=== PATIENT | female | born 1970 | race Caucasian/White ===

== ENCOUNTER → 2022-09-12 | Outpatient (CLI) | payer OTHER ==
--- NOTE | 2022-09-12 15:45 | XR ---
EXAMINATION TYPE: XR lumbar spine 2 or 3V DATE OF EXAM: 09/12/2022 Comparison: None Clinical History: 52-year-old female R10.813, K40.30 Findings: 5 lumbar type vertebral bodies. Moderate to severe disc/endplate degenerative change L2-L3. Hypertrop hic facet arthropathy mid to lower lumbar spine. Degenerative grade 1 retrolisthesis L2-L3 and L3-L4. Remaining alignment is maintained. Impression: 1. Hypertrophic facet arthropathy with degenerative grade 1 retrolisthesis L2-L3 and L3-L4. 2. Moderate to severe degenerative disc disease L2-L3. 3. No vertebral compression collapse.
== END | disposition home or self-care (01) ==
LOC: RADXRMAIN 13:33
PROVIDERS: ATTEND Emergency Medicine
DX: M51.36 Other intervertebral disc degeneration, lumbar region (principal); S39.012A Strain of muscle, fascia and tendon of lower back, initial encounter; M47.816 Spondylosis without myelopathy or radiculopathy, lumbar region; M43.16 Spondylolisthesis, lumbar region; X58.XXXA Exposure to other specified factors, initial encounter
CPT/HCPCS: 72100

== ENCOUNTER → 2023-01-28 | Outpatient (CLI) | payer OTHER ==
--- NOTE | 2023-01-30 10:07 | MR ---
EXAMINATION TYPE: MR cervical spine wo con DATE OF EXAM: 01/28/2023 COMPARISON: None HISTORY: Neck pain into right shoulder and arm, Headaches CONTRAST: Performed utilizing 0 mL intravenous Gadavist gadolinium contrast. TECHNIQUE: Multiplanar multiecho imaging on a 3.0 Jessica magnet is performed through the cervical spin e. FINDINGS: The craniovertebral junction is normal. Vertebral body alignment is normal. C7-T1: No focal disc herniation or significant disc bulge is evident. No spinal canal stenosis or n eural foraminal stenosis is present. C6-7: Mild broad-based disc bulge is present with anterior thecal sac flattening. No AP spinal stenos is is present. Neural foramen are patent.. C5-6: Broad-based disc bulging is present with moderate anterior thecal sac compression. The sagittal plane appears to have some subligamentous disc extension. This is in close approximation with the sp inal cord greater on the left. No cord deformity is identified. Moderate bilateral femoral narrowing is present. C4-5: Broad-based disc bulge is present greater to the left paracentral region. This may has some sub ligamentous disc extension. No cord contact is evident. No spinal canal stenosis is present. Uncovert ebral joint hypertrophy is contributing to moderate to severe left foraminal stenosis. Correlate with radicular symptoms. C3-4: Small broad-based disc bulge is present which may have some mild subligamentous disc extension on the sagittal plane images. No cord contact or spinal canal stenosis is present.. C2-3: No focal disc herniation or significant disc bulge is evident. No spinal canal stenosis or teresa ral foraminal stenosis is present. IMPRESSION: 1. Disc bulging with subligamentous disc extension C3-4, C4-5 and C5-6 with mild to moderate anterior thecal sac compression. No cord contact is evident. 2. Foraminal stenosis C4-5 appears severe on the left correlate with radicular symptoms. More moderat e bilateral foraminal stenosis is present C5-6
== END | disposition home or self-care (01) ==
LOC: RADMRIMAIN 19:22
PROVIDERS: ATTEND Orthopaedic Surgery Orthopaedic Surgery of the Spine
DX: M99.71 Connective tissue and disc stenosis of intervertebral foramina of cervical region (principal); M50.122 Cervical disc disorder at C5-C6 level with radiculopathy; M50.123 Cervical disc disorder at C6-C7 level with radiculopathy; M79.12 Myalgia of auxiliary muscles, head and neck; M25.78 Osteophyte, vertebrae; R53.1 Weakness
CPT/HCPCS: 72141

== ENCOUNTER → 2023-08-29 | Outpatient (CLI) | payer OTHER ==
--- NOTE | 2023-08-29 09:10 | XR ---
EXAMINATION TYPE: XR chest 2V DATE OF EXAM: 08/29/2023 COMPARISON: NONE HISTORY: Preop chest TECHNIQUE: Frontal and lateral views of the chest are obtained. FINDINGS: There is no focal air space opacity, pleural effusion, or pneumothorax seen. The cardiac silhouette size is within normal limits. The osseous structures are intact. IMPRESSION: No acute cardiopulmonary process.
[2023-08-29 10:39] LABS: INR 0.9 (<1.2); Partial Thromboplastin Time 24.8 sec (22.0-30.0)
[2023-08-29 13:02] LABS: HCT 45.5 % (37.2-46.3); MCHC 35.2 g/dL (32.0-37.0); Mean Platelet Volume 9.5 FL (9.5-12.2); NRBC Per 100 WBC 0 X 10*3/uL (0.00-0.01); Platelet Count 275 X 10*3/uL (140-440); RDW 12.9 % (11.5-14.5); WBC 4.28 X 10*3/uL (4.50-10.00)
[2023-08-29 14:20] LABS: Appearance,Urine Clear (Clear); Bilirubin,Urine Negative (Negative); Blood,Urine Negative (Negative); Color,Urine Yellow (Yellow); Ketones,Urine Negative (Negative); Nitrite,Urine Negative (Negative); PH, Urine 6.5; Specific Gravity,Urine 1.005 (1.001-1.030); Urobilinogen,Urine 0.2 E.U./DL
[2023-08-29 15:19] LABS: ALT 38 U/L (8-44); AST 40 U/L (13-35); Albumin/Globulin Ratio 2.27 Ratio (1.60-3.17); Alkaline Phosphatase 68 U/L (41-126); BUN/Creat Ratio 9.33 Ratio (12.00-20.00); Blood Urea Nitrogen 5.6 mg/dL (9.0-27.0); Calcium 10.1 mg/dL (8.7-10.3); Carbon Dioxide 27.9 mmol/L (21.6-31.8); Chloride 90 mmol/L (96-109); Globulin 2.2 g/dL (1.6-3.3); Glucose 116 mg/dL (70-110); Potassium 4.5 mmol/L (3.5-5.5); Sodium 130 mmol/L (135-145); Total Bilirubin 0.9 mg/dL (0.3-1.2); Total Protein 7.2 g/dL (6.2-8.2)
== END | disposition home or self-care (01) ==
LOC: LABWHC1 08:45
PROVIDERS: ATTEND Orthopaedic Surgery Orthopaedic Surgery of the Spine
DX: M79.12 Myalgia of auxiliary muscles, head and neck (principal); M25.78 Osteophyte, vertebrae; M50.322 Other cervical disc degeneration at C5-C6 level; M50.323 Other cervical disc degeneration at C6-C7 level; M48.02 Spinal stenosis, cervical region; M50.122 Cervical disc disorder at C5-C6 level with radiculopathy; M50.123 Cervical disc disorder at C6-C7 level with radiculopathy; M50.221 Other cervical disc displacement at C4-C5 level; M47.812 Spondylosis without myelopathy or radiculopathy, cervical region; R53.1 Weakness; R94.31 Abnormal electrocardiogram [ECG] [EKG]
CPT/HCPCS: 36415; 71046; 80053; 81003; 85027; 85610; 85730; 93005

== ENCOUNTER 2024-05-19 20:27 | Inpatient (IN) | payer BC, OTHER ==
--- NOTE | 2024-05-19 21:03 | ED ---
Abdominal Pain HPI - General Chief Complaint: Abdominal Pain Stated Complaint: abd pain Time Seen by Provider: 05/19/24 20:41 Source: patient, RN notes reviewed Mode of arrival: ambulatory Limitations: no limitations - History of Present Illness Initial Comments: This is a 54-year-old female who presents to the emergency department for abdominal pain. States that around 1 PM she developed pain in the right upper quadrant radiating around to the right flank region. Pain has since been constant. She has some nausea but no vomiting. Denies any diarrhea or constipation. Denies any history of kidney stones or similar symptoms in the past. MD Complaint: abdominal pain, flank pain - Related Data Previous Rx's Medication Instructions Recorded Cephalexin [Keflex] 500 mg PO Q6HR 3 Days #12 cap 05/21/24 Thiamine [Vitamin B-1] 100 mg PO DAILY 30 Days #30 tab 05/21/24 Allergies Allergy/AdvReac Type Severity Reaction Status Date / Time Penicillins Allergy Anaphylaxis Verified 05/20/24 06:59 clarithromycin [From Biaxin] AdvReac Nausea & Verified 05/20/24 06:59 Vomiting & Diarrhea Review of Systems ROS Statement: Those systems with pertinent positive or pertinent negative responses have been documented in the HPI. ROS Other: All systems not noted in ROS Statement are negative. General Exam Limitations: no limitations General appearance: alert, in distress Head exam: Present: atraumatic, normocephalic, normal inspection Respiratory exam: Present: normal lung sounds bilaterally. Absent: respiratory distress, wheezes, rales, rhonchi, stridor Cardiovascular Exam: Present: regular rate, normal rhythm GI/Abdominal exam: Present: soft, tenderness (RUQ), normal bowel sounds. Absent: distended Back exam: Present: CVA tenderness (R). Absent: CVA tenderness (L) Neurological exam: Present: alert, oriented X3, CN II-XII intact Psychiatric exam: Present: normal affect, normal mood Skin exam: Present: warm, dry, intact, normal color. Absent: rash Course Vital Signs 05/19/24 05/19/24 05/19/24 20:39 22:53 23:44 Temperature 98.8 F 98.6 F Pulse Rate 102 H 97 90 Respiratory 18 20 16 Rate Blood Pressure 155/85 116/75 139/76 O2 Sat by Pulse 93 L 91 L 92 L Oximetry 0205/20/24 05/20/24 23:48 02:00 03:00 Temperature 98.1 F Pulse Rate 77 75 Respiratory 16 16 Rate Blood Pressure 114/63 127/73 O2 Sat by Pulse 95 94 L Oximetry 05/20/24 05/20/24 05/20/24 04:00 05:00 06:00 Temperature Pulse Rate 76 76 73 Respiratory 16 16 17 Rate Blood Pressure 113/67 116/67 115/65 O2 Sat by Pulse 93 L 95 95 Oximetry 05/20/24 05/20/24 05/20/24 07:31 09:38 17:00 Temperature 98.2 F Pulse Rate 80 80 Respiratory 18 18 Rate Blood Pressure 129/89 125/70 O2 Sat by Pulse 98 99 Oximetry 05/20/24 19:31 Temperature Pulse Rate 89 Respiratory 18 Rate Blood Pressure 130/76 O2 Sat by Pulse 97 Oximetry Medical Decision Making - Medical Decision Making This is a 54 year old female who presents to the emergency department for abdominal pain. Was pt. sent in by a medical professional or institution? @ -No Did you speak to anyone other than the patient for history? @ -No Did you review nursing and triage notes? @ -Yes, and I agree, it is accurate with regards to the patient's symptoms. Were old charts reviewed? @ -No Differential Diagnosis? @ -Differential Abdominal Pain Women: Appendicitis, Cholecystitis, diverticulosis, ischemic bowel, pancreatitis, hepatitis, UTI, gastroenteritis, AAA, incarcerated hernia, bowel obstruction, constipation, inflammatory bowel, hepatitis, peptic ulcer disease, splenic infarction, perforated viscus, vulvitis, ovarian torsion, PID, kidney stone, placenta abruption, this is not meant to be an all-inclusive list EKG interpreted by me (3pts min.)? @ -EKG interpreted by me demonstrating the following: Sinus rhythm. Ventricular rate 93 bpm, MN interval 160 ms, QRS duration 84 ms, QTc 424 ms. X-rays interpreted by me (1pt min.)? @ -Chest x-ray obtained, my interpretation identifies no localized consolidations or infiltrates. CT interpreted by me (1pt min.)? @ -CT scan of the abdomen and pelvis obtained. My interpretation identifies no bowel wall thickening or free air. U/S interpreted by me (1pt. min.)? @ -Not obtained What testing was considered but not performed? (CT, X-rays, U/S, labs)? Why? @ -None What meds were considered but not given? Why? @ -None Did you discuss the management of the patient with other professionals? @ -Yes, Dr. Mcqueen, who accepts the patient for admission Did you reconcile home meds? @ -No Was smoking cessation discussed for >3mins.? @ -No Was critical care preformed (if so, how long)? @ -No Were there social determinants of health that impacted care today? How? (H omelessness, low income, unemployed, alcoholism, drug addiction, transportation, low edu. Level, literacy, decrease access to med. care, half-way, rehab)? @ -No Was there de-escalation of care discussed even if they declined? (Discuss DNR or withdrawal of care, Hospice)? @ -No What co-morbidities impacted this encounter? (DM, HTN, Smoking, COPD, CAD, Cancer, CVA, Hep., AIDS, mental health diagnosis, sleep apnea, morbid obesity)? @ -None Was patient admitted / discharged? @ -Admitted. Lab work demonstrates mild leukocytosis with a white blood cell count of 11.2. Patient fairly hyponatremic with a sodium of 122. Urinalysis consistent with infection. Urine sent for culture. Blood culture obtained as well and patient was given [address] scan of the abdomen and pelvis demonstrates groundglass opacities in the right middle lobe with tree-in-bud opacities in the medial left lung base. They advised correlation for acute infectious process. She does admit to some coughing and shortness of breath over the last couple of weeks. Denies any chest pain. Chest x-ray subsequently obtained. No acute process was identified on the chest x-ray. However, the CT scan is much more sensitive and she may also have a respiratory infection occurring, which could also potentially lead to upper abdominal pain. Patient admitted to medicine for further management given the hyponatremia and likely pyelonephritis and lung opacities. Consult placed for nephrology. Will defer further testing/imaging of the lungs to admitting team. Case discussed with ED attending Dr. Braswell. Undiagnosed new problem with uncertain prognosis? @ -None Drug Therapy requiring intensive monitoring for toxicity (Heparin, Nitro, Insulin, Cardizem)? @ -None Were any procedures done? @ -None Diagnosis/symptom? @ -Hyponatremia, pyelonephritis, lung opacities Acute, or Chronic, or Acute on Chronic? @ -Acute Uncomplicated (without systemic symptoms) or Complicated (systemic symptoms)? @ -Complicated Side effects of treatment? @ -None Exacerbation, Progression, or Severe Exacerbation] @ -Not applicable Poses a threat to life or bodily function? @ -Yes, worsening hyponatremia can be life-threatening - Lab Data Result diagrams: 05/21/24 03:03 05/21/24 03:03 Lab Results 05/19/24 05/19/24 05/19/24 Range/Units 21:12 21:12 21:12 WBC 11.2 H (3.8-10.6) k/uL RBC 4.41 (3.80-5.40) m/uL Hgb 13.9 (11.4-16.0) gm/dL Hct 40.8 (34.0-46.0) % MCV 92.5 (80.0-100.0) fL MCH 31.4 (25.0-35.0) pg MCHC 34.0 (31.0-37.0) g/dL RDW 12.9 (11.5-15.5) % Plt Count 360 (150-450) k/uL MPV 6.9 Neutrophils % 85 % Lymphocytes % 8 % Monocytes % 4 % Eosinophils % 1 % Basophils % 0 % Neutrophils # 9.5 H (1.3-7.7) k/uL Lymphocytes # 0.9 L (1.0-4.8) k/uL Monocytes # 0.5 (0-1.0) k/uL Eosinophils # 0.1 (0-0.7) k/uL Basophils # 0.0 (0-0.2) k/uL Sodium 122 L (137-145) mmol/L Potassium 3.8 (3.5-5.1) mmol/L Chloride 86 L (98-107) mmol/L Carbon Dioxide 30 (22-30) mmol/L Anion Gap 6 mmol/L BUN 3 L (7-17) mg/dL Creatinine 0.47 L (0.52-1.04) mg/dL Est GFR (CKD-EPI)AfAm >90 (>60 ml/min/1.73 sqM) Est GFR (CKD-EPI)NonAf >90 (>60 ml/min/1.73 sqM) Glucose 125 H (74-99) mg/dL Osmolality (275-295) mOsm/kg Plasma Lactic Acid Mickey 0.9 (0.7-2.0) mmol/L Calcium 8.9 (8.4-10.2) mg/dL Phosphorus (2.5-4.5) mg/dL Magnesium (1.6-2.3) mg/dL Total Bilirubin 0.9 (0.2-1.3) mg/dL AST 25 (14-36) U/L ALT 21 (4-34) U/L Alkaline Phosphatase 82 (38-126) U/L Total Protein 6.3 (6.3-8.2) g/dL Albumin 3.9 (3.5-5.0) g/dL Amylase 33 (30-110) U/L Lipase 87 (23-300) U/L Urine Color Urine Appearance (Clear) Urine pH (5.0-8.0) Ur Specific [place] (1.001-1.035) Urine Protein (Negative) Urine Glucose (UA) (Negative) Urine Ketones (Negative) Urine Blood (Negative) Urine Nitrite (Negative) Urine Bilirubin (Negative) Urine Urobilinogen (<2.0) mg/dL Ur Leukocyte Esterase (Negative) Urine RBC (0-5) /hpf Urine WBC (0-5) /hpf Ur Squamous Epith Cells (0-4) /hpf Urine Bacteria (None) /hpf Urine Mucus (None) /hpf Urine Osmolality (400-1100) mOsm/kg Influenza Type A (PCR) (Not Detectd) Influenza Type B (PCR) (Not Detectd) RSV (PCR) (Not Detectd) SARS-CoV-2 (PCR) (Not Detectd) 05/19/24 05/19/24 05/19/24 Range/Units 21:12 22:09 22:09 WBC (3.8-10.6) k/uL RBC (3.80-5.40) m/uL Hgb (11.4-16.0) gm/dL Hct (34.0-46.0) % MCV (80.0-100.0) fL MCH (25.0-35.0) pg MCHC (31.0-37.0) g/dL RDW (11.5-15.5) % Plt Count (150-450) k/uL MPV Neutrophils % % Lymphocytes % % Monocytes % % Eosinophils % % Basophils % % Neutrophils # (1.3-7.7) k/uL Lymphocytes # (1.0-4.8) k/uL Monocytes # (0-1.0) k/uL Eosinophils # (0-0.7) k/uL Basophils # (0-0.2) k/uL Sodium (137-145) mmol/L Potassium (3.5-5.1) mmol/L Chloride (98-107) mmol/L Carbon Dioxide (22-30) mmol/L Anion Gap mmol/L BUN (7-17) mg/dL Creatinine (0.52-1.04) mg/dL Est GFR (CKD-EPI)AfAm (>60 ml/min/1.73 sqM) Est GFR (CKD-EPI)NonAf (>60 ml/min/1.73 sqM) Glucose (74-99) mg/dL Osmolality 262 L (275-295) mOsm/kg Plasma Lactic Acid Mickey (0.7-2.0) mmol/L Calcium (8.4-10.2) mg/dL Phosphorus 3.6 (2.5-4.5) mg/dL Magnesium 1.8 (1.6-2.3) mg/dL Total Bilirubin (0.2-1.3) mg/dL AST (14-36) U/L ALT (4-34) U/L Alkaline Phosphatase (38-126) U/L Total Protein (6.3-8.2) g/dL Albumin (3.5-5.0) g/dL Amylase (30-110) U/L Lipase (23-300) U/L Urine Color Colorless Urine Appearance Cloudy H (Clear) Urine pH 6.0 (5.0-8.0) Ur Specific [place] 1.005 (1.001-1.035) Urine Protein Negative (Negative) Urine Glucose (UA) Negative (Negative) Urine Ketones 1+ H (Negative) Urine Blood Negative (Negative) Urine Nitrite Positive H (Negative) Urine Bilirubin Negative (Negative) Urine Urobilinogen <2.0 (<2.0) mg/dL Ur Leukocyte Esterase Moderate H (Negative) Urine RBC 1 (0-5) /hpf Urine WBC 34 H (0-5) /hpf Ur Squamous Epith Cells 1 (0-4) /hpf Urine Bacteria Many H (None) /hpf Urine Mucus Rare H (None) /hpf Urine Osmolality 217 L (400-1100) mOsm/kg Influenza Type A (PCR) (Not Detectd) Influenza Type B (PCR) (Not Detectd) RSV (PCR) (Not Detectd) SARS-CoV-2 (PCR) (Not Detectd) 05/19/24 Range/Units 22:48 WBC (3.8-10.6) k/uL RBC (3.80-5.40) m/uL Hgb (11.4-16.0) gm/dL Hct (34.0-46.0) % MCV (80.0-100.0) fL MCH (25.0-35.0) pg MCHC (31.0-37.0) g/dL RDW (11.5-15.5) % Plt Count (150-450) k/uL MPV Neutrophils % % Lymphocytes % % Monocytes % % Eosinophils % % Basophils % % Neutrophils # (1.3-7.7) k/uL Lymphocytes # (1.0-4.8) k/uL Monocytes # (0-1.0) k/uL Eosinophils # (0-0.7) k/uL Basophils # (0-0.2) k/uL Sodium (137-145) mmol/L Potassium (3.5-5.1) mmol/L Chloride (98-107) mmol/L Carbon Dioxide (22-30) mmol/L Anion Gap mmol/L BUN (7-17) mg/dL Creatinine (0.52-1.04) mg/dL Est GFR (CKD-EPI)AfAm (>60 ml/min/1.73 sqM) Est GFR (CKD-EPI)NonAf (>60 ml/min/1.73 sqM) Glucose (74-99) mg/dL Osmolality (275-295) mOsm/kg Plasma Lactic Acid Mickey (0.7-2.0) mmol/L Calcium (8.4-10.2) mg/dL Phosphorus (2.5-4.5) mg/dL Magnesium (1.6-2.3) mg/dL Total Bilirubin (0.2-1.3) mg/dL AST (14-36) U/L ALT (4-34) U/L Alkaline Phosphatase (38-126) U/L Total Protein (6.3-8.2) g/dL Albumin (3.5-5.0) g/dL Amylase (30-110) U/L Lipase (23-300) U/L Urine Color Urine Appearance (Clear) Urine pH (5.0-8.0) Ur Specific [place] (1.001-1.035) Urine Protein (Negative) Urine Glucose (UA) (Negative) Urine Ketones (Negative) Urine Blood (Negative) Urine Nitrite (Negative) Urine Bilirubin (Negative) Urine Urobilinogen (<2.0) mg/dL Ur Leukocyte Esterase (Negative) Urine RBC (0-5) /hpf Urine WBC (0-5) /hpf Ur Squamous Epith Cells (0-4) /hpf Urine Bacteria (None) /hpf Urine Mucus (None) /hpf Urine Osmolality (400-1100) mOsm/kg Influenza Type A (PCR) Not Detected (Not Detectd) Influenza Type B (PCR) Not Detected (Not Detectd) RSV (PCR) Not Detected (Not Detectd) SARS-CoV-2 (PCR) Not Detected (Not Detectd) - Radiology Data Radiology results: report reviewed, image reviewed Disposition Clinical Impression: Hyponatremia, Pyelonephritis, Opacity of lung on imaging study Disposition: ADMITTED IP TO THIS [facility] Condition: Stable
[2024-05-19] MEDS: SODIUM CHLORIDE 0.9% 1,000 ML IV STA ×2 (21:16→23:46)
[2024-05-19] MEDS: KETOROLAC 15 MG/ML 1 ML VIAL IVP STA (21:18)
[2024-05-19] MEDS: ONDANSETRON 4 MG/2 ML VIAL IVP STA (21:20)
[2024-05-19] MEDS: MORPHINE SULFATE 4 MG/ML SYRINGE IVP STA (21:21)
[2024-05-19 21:27] LABS: Basophils % (A) 0 %; Eosinophils # (A) 0.1 k/uL (0-0.7); Eosinophils % (A) 1 %; HCT 40.8 % (34.0-46.0); HGB 13.9 gm/dL (11.4-16.0); Lymphocytes # (A) 0.9 k/uL (1.0-4.8); Lymphocytes % (A) 8 %; MCH 31.4 pg (25.0-35.0); MCV 92.5 fL (80.0-100.0); Mean Platelet Volume 6.9; Monocytes # (A) 0.5 k/uL (0-1.0); Monocytes % (A) 4 %; Neutrophils # (A) 9.5 k/uL (1.3-7.7); Neutrophils % (A) 85 %; Platelet Count 360 k/uL (150-450); RBC 4.41 m/uL (3.80-5.40); RDW 12.9 % (11.5-15.5); WBC 11.2 k/uL (3.8-10.6)
[2024-05-19 21:41] LABS: ALT 21 U/L (4-34); AST 25 U/L (14-36); African American GFR (CKD) >90 (>60 ml/min/1.73 sqM); Albumin 3.9 g/dL (3.5-5.0); Alkaline Phosphatase 82 U/L (38-126); Amylase 33 U/L (30-110); Anion Gap 6 mmol/L; Blood Urea Nitrogen 3 mg/dL (7-17); Calcium 8.9 mg/dL (8.4-10.2); Carbon Dioxide 30 mmol/L (22-30); Chloride 86 mmol/L (98-107); Glucose 125 mg/dL (74-99); Lipase 87 U/L (23-300); Non-African American GFR(CKD) >90 (>60 ml/min/1.73 sqM); Potassium 3.8 mmol/L (3.5-5.1); Sodium 122 mmol/L (137-145); Total Bilirubin 0.9 mg/dL (0.2-1.3); Total Protein 6.3 g/dL (6.3-8.2)
[2024-05-19 22:16] LABS: Appearance,Urine Cloudy (Clear); Bacteria,Urine Many /hpf; Bilirubin,Urine Negative (Negative); Blood,Urine Negative (Negative); Color,Urine Colorless; Glucose,Urine (UA) Negative (Negative); Ketones,Urine 1+ (Negative); Leukocyte Esterase,Urine Moderate (Negative); Mucus,Urine Rare /hpf; Nitrite,Urine Positive (Negative); Protein,Urine Negative (Negative); RBC,Urine 1 /hpf (0-5); Specific Gravity,Urine 1.005 (1.001-1.035); Squamous Epithelial Cell,Urine 1 /hpf (0-4); Urobilinogen,Urine <2.0 mg/dL (<2.0); WBC,Urine 34 /hpf (0-5)
--- NOTE | 2024-05-19 22:29 | CT ---
EXAMINATION TYPE: CT abdomen pelvis wo con DATE OF EXAM: 05/19/2024 HISTORY: Pt states that she has constant pain under her right ribs that radiates to her right side to her back. Pt states that this started around 1300 today. Automated Exposure Control for Dose Reduction was Utilized. TECHNIQUE: CT scan of the abdomen and pelvis is performed without oral or IV contrast. COMPARISON: NONE FINDINGS: Within the limitations of a non-contrast study, the following observations are made. LUNG BASES: Reticular shaped area of groundglass opacity with some central areas of nodular consolida tion in the right middle lobe are present. Patchy groundglass opacities with tree-in-bud nodularity m edial left lung base and more focal nodule or nodular consolidation right lower lobe is noted. Correl ate for possible acute infectious process. Follow-up to resolution is advised to rule out underlying mass or neoplasm. LIVER/GB: Liver size upper limits of normal. PANCREAS: No significant abnormality is seen. SPLEEN: Scattered punctate calcifications throughout the spleen consistent with chronic old granuloma tous disease is present.. ADRENALS: No significant abnormality is seen. KIDNEYS: No renal stones or hydronephrosis is seen bilaterally. Mildly distended bladder without intr aluminal calculus BOWEL: Sigmoid colonic diverticulosis. No CT evidence for acute diverticulitis. No abnormal small or large bowel dilatation GENITAL ORGANS: Uterus is surgically absent or markedly atrophic in appearance. LYMPH NODES: No greater than 1cm abdominal or pelvic lymph nodes are appreciated. OSSEOUS STRUCTURES: Moderate to severe disc space narrowing with endplate sclerosis and spurring at L 2-L3 level. Moderate narrowing of both hip joints. OTHER: Small fat-containing umbilical hernia. Mild calcified plaque of the aorta extends into branch vessels IMPRESSION: 1. No renal stones or hydronephrosis is seen bilaterally. 2. Rectangular shaped ground glass opacity right middle lobe. Tree-in-bud opacities medial left lung base. Correlate for possible acute infectious process. Areas of nodular consolidation and/or possible nodules right middle lobe and right lower lobe. Follow-up to resolution advised to rule out neoplasm . [facility], , 05/19/2024 10:27 PM
[2024-05-19 22:30] LABS: Magnesium 1.8 mg/dL (1.6-2.3); Phosphorus 3.6 mg/dL (2.5-4.5)
[2024-05-19] MEDS: HYDROmorphone 1 MG/ML 1 ML SYRINGE IVP STA (22:49)
--- NOTE | 2024-05-19 22:53 | XR ---
EXAMINATION TYPE: XR chest 2V DATE OF EXAM: 05/19/2024 10:44 PM COMPARISON: Chest x-ray August 29, 2023 CLINICAL INDICATION: Female, 54 years old with history of Cough, JESE, TECHNIQUE: Frontal and lateral views of the chest are obtained. FINDINGS: Overlying bra strap on current study. There is no focal air space opacity, pleural effusio n, or pneumothorax seen. The cardiac silhouette size remains within normal limits. Anterior fusion p late in lower cervical spine is now seen. IMPRESSION: No acute cardiopulmonary process. [facility], , 05/19/2024 10:50 PM
[2024-05-19] MEDS ORDERED: HYDROcodone/APAP 5-325MG 1 EACH TAB PO PRN (23:16)
[2024-05-19] MEDS ORDERED: MORPHINE SULFATE 4 MG/ML SYRINGE IV PRN (23:16)
[2024-05-19] MEDS ORDERED: ACETAMINOPHEN TAB 325 MG TAB PO PRN (23:16)
[2024-05-19] MEDS ORDERED: KETOROLAC 15 MG/ML 1 ML VIAL IVP PRN (23:16)
[2024-05-19] MEDS ORDERED: IBUPROFEN 400 MG TAB PO PRN (23:16)
[2024-05-19] MEDS ORDERED: NALOXONE 0.4 MG/ML 1 ML VIAL IV PRN (23:16)
[2024-05-19] MEDS ORDERED: ONDANSETRON 4 MG/2 ML VIAL IVP PRN (23:16)
[2024-05-19 23:45] LABS: Influenza A Not Detected (Not Detectd); Influenza B Not Detected (Not Detectd); RSV Not Detected (Not Detectd)
[2024-05-20 00:55] LABS: African American GFR (CKD) >90 (>60 ml/min/1.73 sqM); Anion Gap 6 mmol/L; Blood Urea Nitrogen 3 mg/dL (7-17); Calcium 8.1 mg/dL (8.4-10.2); Carbon Dioxide 27 mmol/L (22-30); Chloride 90 mmol/L (98-107); Glucose 124 mg/dL (74-99); Non-African American GFR(CKD) >90 (>60 ml/min/1.73 sqM); Potassium 3.7 mmol/L (3.5-5.1); Sodium 123 mmol/L (137-145)
[2024-05-20] MEDS ORDERED: LORazepam 1 MG TAB PO PRN (01:20)
[2024-05-20] MEDS ORDERED: LORazepam 0.5 MG TAB PO PRN (01:20)
[2024-05-20] MEDS ORDERED: LORazepam 2 MG/ML INJ IV PRN ×3 (01:20)
[2024-05-20] MEDS ORDERED: IPRATROPIUM-ALBUTEROL 3 ML NEB INHALATION PRN (01:26)
--- NOTE | 2024-05-20 01:29 | P.HPIM ---
History of Present Illness H&P Date: 05/19/24 Patient is a 54-year-old female with no significant medical history is here for abdominal pain. She reported that around 1 PM 05/19 she developed constant right upper quadrant abdominal pain with an intensity of 10 out of 10 that is radiating around the right flank region. She reported associated nausea. She also reported a productive cough that has been going on for weeks with an associated runny nose. She is also been having decreased appetite in the last month and has oral intake of a few Maori muffins "here and there" within a day. She denied vomiting, diarrhea, constipation, hematuria, dysuria, cough, shortness of breath, chest pain, palpitations, lightheadedness, dizziness, headaches. She denies recent illness or hospitalization. She has a significant family history of bladder cancer in her father. She does not have recurrent UTI episodes. Social history: Tobacco: Current smoker. Actively smoking for 38 years of about 15 sticks per day Alcohol: Daily alcohol intake of 4-5 beers. Last drink 1030 p.m. 05/18 Recreational drugs: Denies illicit or recreational drug use Travel: No recent travel On admission, CT of the abdomen showed no renal stones or hydronephrosis seen, rectangular shaped groundglass opacity found on the right middle lobe of the lung. Tree-in-bud opacities in the medial left lung base. Correlate for acute infectious process areas of nodular consolidation and/or possible nodules of the right middle lobe and right lower lobe. Follow-up to resolution is advised to rule out a neoplasm. Chest x-ray showed no acute cardiopulmonary process. EKG sinus rhythm with a rate of 93 bpm, normal axis, inverted P waves in V1 and V2, no ST-T changes, QTc 424 MS. Labs on admission showed WBC 11.2, hemoglobin 13.9, platelet count 360,000, sodium 122, potassium 3.8, chloride 86, bicarb 30, BUN 30, creatinine 0.47, glucose 125, lactic acid 0.9, calcium 8.9, phosphorus 3.6, magnesium 1.8, amylase 33, lipase 87. Liver function tests unremarkable. Urinalysis showed cloudy appearance, +1 ketones, positive nitrates, moderate leukocyte esterase, urine WBC 34, many bacteria, mucus rare. Cepheid 4 negative. Vitals on admission showed temperature 98.8 F, pulse rate 102, respiratory rate 18, blood pressure 155/85, O2 saturation 93% on room air ED documentation reviewed. 1 L bolus 0.9 normal saline, ceftriaxone 2 g IVPB, pain control medications, and Zofran 4 mg IVP initiated in the ED. Review of systems: Pertinent positives and negatives as discussed in HPI, a complete review of systems was performed and all other systems are negative. Physical examination: Vital signs reviewed General: non toxic, no distress, appears older than stated age, on 2 L nasal cannula Derm: no unusual rashes/lesions, warm Head: atraumatic, normocephalic, symmetric Eyes: EOMI, anicteric sclera, pupils equal round reactive to light ENT: Nose and ears atraumatic Neck: No cervical lymphadenopathy, trachea midline, supple Mouth: no lip lesion, mucus membranes moist Cardiovascular: S1S2 reg, no murmur Lungs: Diffuse inspiratory and expiratory wheezing, no rhonchi, no rales, no accessory muscle use Abdominal: soft, nondistended, nontender to palpation, no guarding, negative CVA tenderness Ext: muscle strength 5 out of 5 in all 4 extremities grossly, no gross muscle atrophy, no contractures, positive dorsalis pedis pulse bilateral, no edema Neuro: CN II-XI grossly intact, no gross focal neuro deficits Psych: Alert and oriented x 3, appropriate affect and mood Assessment/Plan: 54-year-old female here for abdominal pain and hyponatremia. Imaging on CT chest is concerning for pneumonia. Urinalysis is concerning for cystitis. #. hyponatremia -Sodium 122, chloride 86 -Continue with 0.9 normal saline IVF 75 mL/h -Repeat BMP to evaluate sodium -Serum osmolality ordered -Urine osmolality ordered -Consult nephrology check TSH , cortisol am most likely secondary to heavy alcohol consumption #. Acute simple cystitis #. Abdominal pain possibly related to above, rule out other causes #. Alcohol use disorder -Last drink 05/18 -Urinalysis showed cloudy appearance, +1 ketones, positive nitrates, moderate leukocyte esterase, urine WBC 34, many bacteria, mucus rare. -CT of the abdomen showed no renal stones or hydronephrosis seen -Patient also reported that she has been having decreased appetite for a month -Ceftriaxone 2 g IVPB daily initiated and ED -Continue with 0.9 normal saline IVF 75 mL/h -Ativan per [facility] protocol -Urine culture pending -Blood cultures pending -Encourage oral intake Thiamine 100 mg po daily #. Ground glass opacities in abdominal CT concerning for community-acquired pneumonia versus COPD -CT abdomen reported rectangular shaped groundglass opacity found on the right middle lobe of the lung. Tree-in-bud opacities in the medial left lung base. -Chest x-ray showed no acute cardiopulmonary process. -Patient 92% O2 saturation on room air -Patient has elevated WBC 11.2 -Patient has diffuse inspiratory and expiratory wheezes. She has no history of COPD -Ceftriaxone 2 g IVP daily initiated in the ED. -Initiate Zithromax 500 mg IVPB daily -DuoNebs inhalers 4 times daily and as needed -Monitor CBC -Ordered Pro-Dwayne F: Normal saline 75 cc/h E: Monitor sodium N: Encourage oral intake A: Can self ambulate DVT ppx: Lovenox 40 mg SQ daily GI ppx: Protonix 40mg daily Dispo: The patient is admitted with an anticipated greater than 2 midnight stay for evaluation of hyponatremia and abdominal pain CODE STATUS: Full Discussed with: Patient Anticipated discharge place: Home Maggi Goodwin MD PGY-1 IM Dictation was produced using [employer] dictation software. please excuse any grammatical, word or spelling errors. Medications and Allergies Allergies Allergy/AdvReac Type Severity Reaction Status Date / Time Penicillins Allergy Anaphylaxis Verified 05/19/24 20:44 clarithromycin [From Biaxin] AdvReac Nausea & Verified 05/19/24 20:44 Vomiting & Diarrhea Physical Exam Vitals: Vital Signs Temp Pulse Resp BP Pulse Ox 05/19/24 22:53 98.6 F 97 20 116/75 91 L 05/19/24 20:39 98.8 F 102 H 18 155/85 93 L Intake and Output 05/19/24 05/19/24 05/20/24 14:59 22:59 06:59 Other: Weight 118.1 kg Results CBC & Chem 7: 05/19/24 21:12 05/20/24 00:23 Labs: Abnormal Lab Results - Last 24 Hours (Table) 05/19/24 05/19/24 05/19/24 Range/Units 21:12 21:12 22:09 WBC 11.2 H (3.8-10.6) k/uL Neutrophils # 9.5 H (1.3-7.7) k/uL Lymphocytes # 0.9 L (1.0-4.8) k/uL Sodium 122 L (137-145) mmol/L Chloride 86 L (98-107) mmol/L BUN 3 L (7-17) mg/dL Creatinine 0.47 L (0.52-1.04) mg/dL Glucose 125 H (74-99) mg/dL Urine Appearance Cloudy H (Clear) Urine Ketones 1+ H (Negative) Urine Nitrite Positive H (Negative) Ur Leukocyte Esterase Moderate H (Negative) Urine WBC 34 H (0-5) /hpf Urine Bacteria Many H (None) /hpf Urine Mucus Rare H (None) /hpf
[2024-05-20] MEDS ORDERED: IPRATROPIUM-ALBUTEROL 3 ML NEB INHALATION SCH (08:00)
[2024-05-20] MEDS: ENOXAPARIN 40 MG/0.4 ML SYRINGE SQ SCH (08:23)
[2024-05-20] MEDS ORDERED: PANTOPRAZOLE 40 MG/10 ML VIAL IV SCH (09:00)
[2024-05-20] MEDS: AZITHROMYCIN 500 MG in SODIUM CHLORIDE 0.9% 250 ML IVPB SCH (09:33)
--- NOTE | 2024-05-20 11:38 | P.NPCON ---
History of Present Illness - Reason for Consult hyponatremia - History of Present Illness Patient is a 54-year-old female with no significant past medical history except for nicotine addiction and smoking. Patient is admitted to the hospital with severe right upper abdominal pain radiating to the back. Patient denies any diarrhea fever or chills. She did have some nausea, no vomiting. No history of cough No new medications that was started recently. No history of use of NSAIDs. Serum sodium was 122 on admission and it is 123 today. She is maintained on normal Blood pressure not significantly low. CT abdomen also any significant abdominal findings but there was opacity noted in the right middle lobe of the lung and medial left lung base. Medications and Allergies Home Medications Medication Instructions Recorded Confirmed Type No Known Home Medications 05/20/24 05/20/24 History Allergies Allergy/AdvReac Type Severity Reaction Status Date / Time Penicillins Allergy Anaphylaxis Verified 05/20/24 06:59 clarithromycin [From Biaxin] AdvReac Nausea & Verified 05/20/24 06:59 Vomiting & Diarrhea Physical Exam Vitals: Vital Signs Temp Pulse Resp BP Pulse Ox 05/20/24 09:38 80 18 129/89 98 05/20/24 07:31 98.2 F 05/20/24 06:00 73 17 115/65 95 05/20/24 05:00 76 16 116/67 95 05/20/24 04:00 76 16 113/67 93 L 05/20/24 03:00 75 16 127/73 94 L 05/20/24 02:00 77 16 114/63 95 05/19/24 23:48 98.1 F 05/19/24 23:44 90 16 139/76 92 L 05/19/24 22:53 98.6 F 97 20 116/75 91 L 05/19/24 20:39 98.8 F 102 H 18 155/85 93 L Intake and Output 05/19/24 05/20/24 05/20/24 22:59 06:59 14:59 Other: Weight 118.1 kg Patient is awake, comfortable, alert oriented x 3. Examination of the heart S1 and S2 Examination of the lungs bilateral breath sounds are heard Abdomen is soft nontender Examination of lower extremities shows no significant edema FLARE BREAKER exam grossly intact Results - Lab Results Most recent lab results Calcium 8.1 mg/dL (8.4-10.2) L 05/20/24 00:23 Phosphorus 3.6 mg/dL (2.5-4.5) 05/19/24 21:12 Magnesium 1.8 mg/dL (1.6-2.3) 05/19/24 21:12 05/19/24 21:12 05/20/24 00:23 Assessment and Plan Assessment: 1. Hyponatremia possibly hypovolemic. Repeat sodium this morning. Urine osmo lality at 217. If serum sodium worsens with saline administration, there is high likelihood of of underlying SIADH. Repeat sodium now. Avoid NSAIDs 2. Right upper abdominal pain possibly related to underlying lung pathology 3. Right lung opacity consider CT scan of the lungs. Chest x-ray was u nremarkable 4. Pyuria, asymptomatic Plan: Check urine sodium check serum sodium stat May continue with saline for now Recommend further imaging of the lungs rule out underlying malignancy given the history of smoking. Thank you for the consultation. We will continue to follow the patient with you during her hospitalization.
--- NOTE | 2024-05-20 13:06 | CA ---
Transthoracic Echo Report Name: Monica Berumen Age: 54 Gender: F : 1970 Exam Date: 05/20/2024 10:17 Exam Location: [facility] Ht (in): 66 Wt (lb): 118 Ordering Physician: Brayden Mcqueen MD Attending/Referring Phys: [id number], [employer] Kaleigh Urias RDCS Procedure CPT: Indications: symptomatic bradycardia Cardiac Hx: Technical Quality: Fair Contrast 1: Total Dose (mL): Contrast 2: Total Dose (mL): MEASUREMENTS (Male / Female) Normal Values 2D ECHO LV Diastolic Diameter PLAX 4.5 cm 4.2 - 5.9 / 3.9 - 5.3 cm LV Systolic Diameter PLAX 2.9 cm IVS Diastolic Thickness 0.7 cm 0.6 - 1.0 / 0.6 - 0.9 cm LVPW Diastolic Thickness 0.8 cm 0.6 - 1.0 / 0.6 - 0.9 cm LV Relative Wall Thickness 0.3 RV Internal Dim ED PLAX 3.2 cm LVOT Diameter 1.6 cm LV Diastolic Volume MOD BP 68.4 cm??? 67 - 155 / 56 - 104 cm??? LV Systolic Volume MOD BP 26.8 cm??? 22 - 58 / 19 - 49 cm??? LV Ejection Fraction MOD BP 60.8 % >= 55 % LV Cardiac Index MOD BP 1825.1 cm???/min???m??? LV Diastolic Volume MOD 4C 73.6 cm??? LV Systolic Volume MOD 4C 28.9 cm??? LV Ejection Fraction MOD 4C 60.8 % LV Cardiac Index MOD 4C 1964.8 cm???/min???m??? LV Diastolic Length 4C 6.6 cm LV Systolic Length 4C 5.2 cm LV Diastolic Volume MOD 2C 56.0 cm??? LV Systolic Volume MOD 2C 21.3 cm??? LV Ejection Fraction MOD 2C 62.0 % LV Cardiac Index MOD 2C 1522.2 cm???/min???m??? LV Diastolic Length 2C 7.5 cm LV Systolic Length 2C 6.1 cm LA Volume 34.7 cm??? 18 - 58 / 22 - 52 cm??? LA Volume Index 22.1 cm???/m??? 16 - 28 cm???/m??? DOPPLER AV Peak Velocity 136.4 cm/s AV Peak Gradient 7.4 mmHg AV Mean Velocity 94.3 cm/s AV Mean Gradient 3.9 mmHg AV Velocity Time Integral 25.8 cm LVOT Peak Velocity 107.3 cm/s LVOT Peak Gradient 4.6 mmHg LVOT Velocity Time Integral 21.5 cm LVOT Stroke Volume 43.9 cm??? LVOT Stroke Volume Index 27.5 ml/m??? LVOT Cardiac Index 1927.2 cm???/min???m??? AV Area Cont Eq vti 1.7 cm??? AV Area Cont Eq pk 1.6 cm??? MV Area PHT 3.7 cm??? Mitral E Point Velocity 99.1 cm/s Mitral A Point Velocity 94.2 cm/s Mitral E to A Ratio 1.1 MV Deceleration Time 206.8 ms MV E' Velocity 7.8 cm/s Mitral E to MV E' Ratio 12.7 TR Peak Velocity 238.8 cm/s TR Peak Gradient 22.8 mmHg Right Ventricular Systolic Press 26.6 mmHg FINDINGS Left Ventricle Normal Left ventricular size, wall thickness, systolic function with no obvious regional wall motion abnormalities. Normal Left ventricular diastolic filling pattern. The EF is around 55% Right Ventricle Mild right ventricular dilatation. Right ventricular systolic pressure within normal limits. Right Atrium Normal right atrial size. Left Atrium Normal left atrial size. Mitral Valve Structurally normal mitral valve. Mild mitral annular calcification. Trace to mild mitral regurgitation. Aortic Valve Trileaflet aortic valve. No aortic valve stenosis or regurgitation. Tricuspid Valve Structurally normal tricuspid valve. Mild tricuspid regurgitation. Pulmonic Valve Structurally normal pulmonic valve. Pericardium No pericardial effusion. Aorta Normal size aortic root and proximal ascending aorta. CONCLUSIONS Normal LV systolic function Mild RV dilatation No pericardial effusion Normal pulmonary artery systolic pressure Previewed by: Dr. Bo Milton MD (Electronically Signed) Final Date: 20 May 2024 13:05
--- NOTE | 2024-05-20 19:53 | P.PN ---
Subjective Progress Note Date: 05/20/24 Hospital course: Patient is a 54-year-old female with no significant medical history is here for abdominal pain. She reported that around 1 PM 05/19 she developed constant right upper quadrant abdominal pain with an intensity of 10 out of 10 that is radiating around the right flank region. She reported associated nausea. She also reported a productive cough that has been going on for weeks with an associated runny nose. She is also been having decreased appetite in the last month and has oral intake of a few Slov[place] muffins "here and there" within a day. She denied vomiting, diarrhea, constipation, hematuria, dysuria, cough, shortness of breath, chest pain, palpitations, lightheadedness, dizziness, headaches. She denies recent illness or hospitalization. She has a significant family history of bladder cancer in her father. She does not have recurrent UTI episodes CT abdomen and pelvis without contrast negative for hydronephrosis showing rect angular shaped groundglass opacity of right middle lobe tree-in-bud opacities medial left lung base areas of nodular consolidation and/or possible nodules in right middle lobe and right lower lobe. Physical exam: Vital signs reviewed and stable. General: Nontoxic, no distress and appears stated age. Derm: Skin warm and dry, normal coloration for ethnicity. Head: Atraumatic, normocephalic and symmetric. Eyes: EOM's intact, no lid lag, and anicteric sclera Mouth: no lip lesions, mucus membranes moist Cardiovascular: regular rate and rhythm with normal S1S2, no murmur, positive posterior tibial pulses bilaterally, and cap refill < 2 seconds. Lungs: Respirations even, regular, and unlabored on 2 L O2 lungs diminished with diffuse expiratory wheezes bilaterally Abdominal: soft, nontender to palpation, no guarding, no appreciable organomegaly Ext: ROM intact. No gross muscle atrophy, no edema, no contractures Neuro: Speech clear, face symmetrical and CN II-XII grossly intact with no noted focal neuro deficits Psych: Alert and oriented to person, place, time, and situation. Appropriate and pleasant affect. Assessment and Plan of Care: Alcohol abuse and active alcoholic, pending withdrawal -Continue monitoring of CIWA scores and patient to be medicated with Ativan 0.5 mg every 4 hours as needed for CIWA score of 4-5, Ativan 1 mg every 4 hours for CIWA score of 6-7, Ativan 2 mg every 3 hours CIWA score of 8-9, and Ativan 2 mg every 2 hours forr CIWA score of 10 or greater. -Continuous IV hydration with 0.9% normal saline at 75 cc/h. -Thiamine 100 mg daily, and Multivitamin daily, and Folate 1 mg daily -Seizure, fall, aspiration, and elopement precautions in place. -Urine drug screen -Continued close monitoring of electrolytes and replace as needed. -Telemetry monitoring. Hyponatremia Metabolic alkalosis -Continue gentle IV fluid hydration with 0.9% normal saline at 75 cc/h. -Nephrology following, appreciate recommendations. -TSH normal findings at 1.580 cortisol 7.8 urine osmolality is low at 217. Serum osmolality is low at 262. -Continue close monitoring with repeat a.m. labs. Mild uncomplicated UTI -IV antibiotics with Rocephin 2 g daily. -Follow-up on urine culture. COPD with continued nicotine dependence -CT abdomen and pelvis without contrast negative for hydronephrosis showing rectangular shaped groundglass opacity of right middle lobe tree-in-bud opacities medial left lung base areas of nodular consolidation and/or possible nodules in right middle lobe and right lower lobe. -Consult to Pulmonology -Oxygenation to be administered and titrated as needed to maintain SPO2 equal to or greater than 92% -Telemetry monitoring. -Monitor pulse-oximetry -Duonebs daily and as needed for SOB and/or wheezing -Incentive Spirometry -Antibiotics: Rocephin and azithromycin. Unable to rule out pulmonary nodules -Recommend outpatient follow-up with wheelage clerk for surveillance and repeat imaging. Data reviewed: -CT abdomen and pelvis without contrast negative for hydronephrosis showing rectangular shaped groundglass opacity of right middle lobe tree-in-bud opacities medial left lung base areas of nodular consolidation and/or possible nodules in right middle lobe and right lower lobe. -Vital signs reviewed. Blood pressure 129/89, heart rate 80, respiratory rate 18, temp 98.2 F, and SpO2 of 98% on 2 L -Reviewed. Repeat morning sodium 128 from previous 123 on admission. CODE STATUS: Full code DVT prophylaxis: Lovenox Anticipated discharge date: Pending clinical course Anticipated discharge place: Home Patient was seen independently by Nurse Pracitioner. This document was prepared using [employer] dictation software. Please allow for errors in ski instructor, while rare they do occur. Sanket Mendoza, B[employer]NER rendered care for this patient independently, reviewed the findings and plan as documented in the note above and agree with plan. I did not physically speak with or examine the patient on this date. Objective - Vital Signs Vital signs: Vital Signs Temp 98.2 F 05/20/24 07:31 Pulse 73 05/20/24 06:00 Resp 17 05/20/24 06:00 BP 115/65 05/20/24 06:00 Pulse Ox 95 05/20/24 06:00 FiO2 Intake & Output 05/19/24 05/20/24 05/20/24 18:59 06:59 18:59 Weight 118.1 kg - Labs CBC & Chem 7: 05/19/24 21:12 05/20/24 11:53 Labs: Abnormal Lab Results - Last 24 Hours (Table) 05/19/24 05/19/24 05/19/24 Range/Units 21:12 21:12 21:12 WBC 11.2 H (3.8-10.6) k/uL Neutrophils # 9.5 H (1.3-7.7) k/uL Lymphocytes # 0.9 L (1.0-4.8) k/uL Sodium 122 L (137-145) mmol/L Chloride 86 L (98-107) mmol/L BUN 3 L (7-17) mg/dL Creatinine 0.47 L (0.52-1.04) mg/dL Glucose 125 H (74-99) mg/dL Osmolality 262 L (275-295) mOsm/kg Calcium (8.4-10.2) mg/dL Urine Appearance (Clear) Urine Ketones (Negative) Urine Nitrite (Negative) Ur Leukocyte Esterase (Negative) Urine WBC (0-5) /hpf Urine Bacteria (None) /hpf Urine Mucus (None) /hpf Urine Osmolality (400-1100) mOsm/kg 05/19/24 05/19/24 05/20/24 Range/Units 22:09 22:09 00:23 WBC (3.8-10.6) k/uL Neutrophils # (1.3-7.7) k/uL Lymphocytes # (1.0-4.8) k/uL Sodium 123 L (137-145) mmol/L Chloride 90 L (98-107) mmol/L BUN 3 L (7-17) mg/dL Creatinine 0.43 L (0.52-1.04) mg/dL Glucose 124 H (74-99) mg/dL Osmolality (275-295) mOsm/kg Calcium 8.1 L (8.4-10.2) mg/dL Urine Appearance Cloudy H (Clear) Urine Ketones 1+ H (Negative) Urine Nitrite Positive H (Negative) Ur Leukocyte Esterase Moderate H (Negative) Urine WBC 34 H (0-5) /hpf Urine Bacteria Many H (None) /hpf Urine Mucus Rare H (None) /hpf Urine Osmolality 217 L (400-1100) mOsm/kg
[2024-05-20] MEDS: NICOTINE 21MG/24HR PATCH TRANSDERM SCH (20:57)
[2024-05-21] MEDS: PANTOPRAZOLE 40 MG TABLET PO SCH (06:14)
[2024-05-21] MEDS: THIAMINE 100 MG TAB PO SCH (08:32)
[2024-05-21 10:00] LABS: HCT 35.5 % (37.2-46.3); HGB 12.3 g/dL (12.0-15.0); MCH 32.4 pg (27.0-32.0); MCHC 34.6 g/dL (32.0-37.0); MCV 93.4 FL (80.0-97.0); Mean Platelet Volume 9.5 FL (9.5-12.2); NRBC Per 100 WBC 0 X 10*3/uL (0.00-0.01); Platelet Count 355 X 10*3/uL (140-440); RDW 13.3 % (11.5-14.5); WBC 5.22 X 10*3/uL (4.50-10.00)
[2024-05-21 10:12] LABS: ALT 15 U/L (8-44); AST 14 U/L (13-35); Albumin 3.1 g/dL (3.8-4.9); Albumin/Globulin Ratio 1.63 Ratio (1.60-3.17); Alkaline Phosphatase 68 U/L (41-126); Blood Urea Nitrogen 4.2 mg/dL (9.0-27.0); Calcium 8.2 mg/dL (8.7-10.3); Carbon Dioxide 27.2 mmol/L (21.6-31.8); Chloride 97 mmol/L (96-109); Globulin 1.9 g/dL (1.6-3.3); Glucose 100 mg/dL (70-110); Magnesium 1.9 mg/dL (1.5-2.4); Potassium 3.7 mmol/L (3.5-5.5); Sodium 134 mmol/L (135-145); Total Bilirubin 0.2 mg/dL (0.3-1.2)
--- NOTE | 2024-05-21 15:05 | P.DS ---
Providers Date of admission: 05/19/24 23:18 Expected date of discharge: 05/21/24 Attending physician: Brayden Mcqueen MD Consults: 05/19/24 23:17 Consult Physician Urgent Consulting Provider: Jasmin Katz Consult Reason/Comments: Hyponatremia Do you want consulting provider notified?: Yes Primary care physician: Kurtis Andre MD Hospital Course: Discharge Diagnosis: Alcohol abuse and brought in active alcoholic. Patient strongly educated on importance of alcohol cessation. She was provided with community resources available to her including outpatient counseling and AA meetings. Hyponatremia Metabolic alkalosis Mild uncomplicated UTI. Patient denies history of resistant UTIs. Patient received 2-day course of IV antibiotics with Rocephin and being discharged home on Keflex 500 mg twice daily for an additional 3 days. COPD with continued nicotine dependence. Patient educated on the importance of smoking cessation and risks of continued use. Unable to rule out pulmonary nodules. Recommend outpatient follow-up with radio equipment repairer for surveillance and repeat imaging. Hospital course: Patient is a 54-year-old female with a past medical history of alcohol abuse and COPD. She presented to the hospital on 05/19/2024 with a chief complaint of right upper quadrant abdominal pain radiating into her right flank. Upon arrival to our facility, patient underwent evaluation in the emergency department. Vital signs upon arrival show blood pressure 155/85, heart rate 102, respiratory rate 18, temp 98.8 F, and SpO2 of 93% on room air. Labs completed and reviewed. CBC showing mild leukocytosis with WBC count of 11.2. BMP revealed hypochloremic hyponatremia with sodium of 122 and chloride of 86. Blood glucose was 125. Osmolality was low at 262. Magnesium was 1.8. Liver profile unremarkable. Urinalysis possible mild infection with positive for nitrites and only 34 WBCs. Urine osmolality was 217. Influenza A, influenza B, RSV, and COVID PCR were negative. CT abdomen and pelvis without contrast negative for hydronephrosis showing rectangular shaped groundglass opacity of right middle lobe tree-in-bud opacities medial left lung base areas of nodular consolidation and/or possible nodules in right middle lobe and right lower lobe. Patient was admitted under our services with consultation and nephrology. Sodium levels were monitored closely and slowly improving. Currently hyponatremia nearly resolved with sodium of 134 and hypochloremia resolved with chloride of 97. Patient requesting discharge, she was cleared by nephrology. She is medically optimized and strongly advised against avoiding any and all alcohol use. Patient to follow-up outpatient with PCP in 1 to 2 days. Physical exam: Vital signs reviewed and stable. General: Nontoxic, no distress and appears stated age. Derm: Skin warm and dry, normal coloration for ethnicity. Head: Atraumatic, normocephalic and symmetric. Eyes: EOM's intact, no lid lag, and anicteric sclera Mouth: no lip lesions, mucus membranes moist Cardiovascular: regular rate and rhythm with normal S1S2, no murmur, positive posterior tibial pulses bilaterally, and cap refill < 2 seconds. Lungs: Respirations even, regular, and unlabored on 2 L O2 lungs diminished with diffuse expiratory wheezes bilaterally Abdominal: soft, nontender to palpation, no guarding, no appreciable organomegaly Ext: ROM intact. No gross muscle atrophy, no edema, no contractures Neuro: Speech clear, face symmetrical and CN II-XII grossly intact with no noted focal neuro deficits Psych: Alert and oriented to person, place, time, and situation. Appropriate and pleasant affect. A total of 31 minutes of time were spent preparing this complex discharge summary. Pt was discharged on 05/21/2024 at 2:58 PM. Patient was seen independently by Nurse Practitioner. This document was prepared using [employer] dictation software. Please allow for errors in gem stone cutter while rare they do occur. Sanket Mendoza NP rendered care for this patient independently, reviewed the findings and plan as documented in the note above. I did not physically speak with or examine the patient on this date. Patient Condition at Discharge: Stable Plan - Discharge Summary Discharge Rx Participant: No New Discharge Prescriptions: New Thiamine [Vitamin B-1] 100 mg PO DAILY 30 Days #30 tab Cephalexin [Keflex] 500 mg PO Q6HR 3 Days #12 cap Discharge Medication List Cephalexin [Keflex] 500 mg PO Q6HR 3 Days #12 cap 05/21/24 [Rx] Thiamine [Vitamin B-1] 100 mg PO DAILY 30 Days #30 tab 05/21/24 [Rx] Follow up Appointment(s)/Referral(s): Kurtis Andre MD [Primary Care Provider] - 1-2 days Patient Instructions/Handouts: How to Stop Smoking (DC), Hyponatremia (DC), Abuse of Alcohol (DC) Activity/Diet/Wound Care/Special Instructions: - Activity: As tolerated. Take breaks as needed. Diet: Heart healthy and carb consistent diet. Avoid salts, or foods with hidden salts such as canned or boxed foods and frozen dinners. Extra salt makes your heart work harder and traps the fluid in your body for longer. Special Instructions: Take all of your medications as directed and remember to keep all of your doctor's appointments and follow-up as needed. CT abdomen and pelvis without contrast revealed rectangular shaped groundglass opacity of right middle lobe tree-in-bud opacities medial left lung base areas of nodular consolidation and/or possible nodules in right middle lobe and right lower lobe. Likely secondary to COPD however he will require outpatient follow- up for repeat CT in 3 months for surveillance. Thank you for allowing us to participate in your care, it was truly a pleasure having you for our patient!!! Discharge/Stand Alone Forms: AA [facility] [place], Community Resources, Outpatient Counseling, Inp Substance Abuse Facilities Discharge Disposition: HOME SELF-CARE
[2024-05-21 15:30] VITALS: BP 100/62; PULSE 81; RESP 16; TEMP 98.6
--- NOTE | 2024-05-21 16:13 | P.PN ---
Subjective Patient is seen for follow-up for hyponatremia. Serum sodium improved with normal saline administration which is now discontinued. Serum sodium 134 today. Patient wants to go home. No significant complaints. Objective - Vital Signs Vital signs: Vital Signs Temp 98.6 F 05/21/24 13:56 Pulse 81 05/21/24 13:56 Resp 16 05/21/24 13:56 BP 100/62 05/21/24 13:56 Pulse Ox 93 L 05/21/24 13:56 FiO2 Intake & Output 05/20/24 05/21/24 05/21/24 18:59 06:59 18:59 Weight 53.6 kg 53.5 kg Other: Voiding Method Toilet # Voids 1 - Exam Patient is awake, comfortable, no acute distress. Abdomen is soft nontender Examination lower extremity shows no evidence of edema TOUR ESCORT exam grossly intact - Labs CBC & Chem 7: 05/21/24 03:03 05/21/24 03:03 Labs: Abnormal Lab Results - Last 24 Hours (Table) 05/21/24 05/21/24 Range/Units 03:03 03:03 RBC 3.80 L (4.10-5.20) X 10*6/uL Hct 35.5 L (37.2-46.3) % MCH 32.4 H (27.0-32.0) pg Sodium 134 L (135-145) mmol/L BUN 4.2 L (9.0-27.0) mg/dL Creatinine 0.5 L (0.6-1.5) mg/dL BUN/Creatinine Ratio 8.40 L (12.00-20.00) Ratio Calcium 8.2 L (8.7-10.3) mg/dL Total Bilirubin 0.2 L (0.3-1.2) mg/dL Total Protein 5.0 L (6.2-8.2) g/dL Albumin 3.1 L (3.8-4.9) g/dL Microbiology - Last 24 Hours (Table) 05/19/24 22:47 Blood Culture - Preliminary Blood 05/19/24 22:09 Urine Culture - Preliminary Urine,Clean Catch Gram Neg Bacilli Assessment and Plan Assessment: 1. Hyponatremia possibly hypovolemic. Sodium improved with saline administration which is now discontinued. Urine osmolality at 217. 2. Right upper abdominal pain possibly related to underlying lung pathology 3. Right lung opacity consider CT scan of the lungs. Chest x-ray was unremarkable 4. Pyuria, asymptomatic Plan: Patient can be discharged from nephrology standpoint. Repeat sodium as outpatient in 2 to 3 days. Recommend further imaging of the lungs rule out underlying malignancy given the history of smoking. This can be done as outpatient as well.
== END 2024-05-21 19:06 | disposition home or self-care (01) | DRG 897 ==
LOC: EC 20:27 → 3SCARD 23:17 → OBSVTOIN 23:18 → 3SCARD 05-20 02:10 → 4SSUR 05-20 15:45
PROVIDERS: ADMIT Internal Medicine; ATTEND Internal Medicine
DX: F10.20 Alcohol dependence, uncomplicated (principal); E87.3 Alkalosis; J44.9 Chronic obstructive pulmonary disease, unspecified; E87.1 Hypo-osmolality and hyponatremia; N30.00 Acute cystitis without hematuria; E87.8 Other disorders of electrolyte and fluid balance, not elsewhere classified; Z71.41 Alcohol abuse counseling and surveillance of alcoholic; F17.210 Nicotine dependence, cigarettes, uncomplicated; R91.8 Other nonspecific abnormal finding of lung field; Z20.822 Contact with and (suspected) exposure to COVID-19; Z87.440 Personal history of urinary (tract) infections; Z88.1 Allergy status to other antibiotic agents; Z88.0 Allergy status to penicillin
CPT/HCPCS: 36415; 71046; 74176; 80048; 80053; 81001; 82150; 82533; 83605; 83690; 83735; 83930; 83935; 84100; 84145; 84295; 84443; 85025; 85027; 87040; 87077; 87086; 87186; 87636; 93005; 93306; 96361; 96365; 96366; 96367; 96375; 99285

== ENCOUNTER → 2024-07-13 | Outpatient (CLI) | payer BC ==
--- NOTE | 2024-07-13 11:56 | CT ---
EXAMINATION TYPE: CT chest wo/w con CT DLP: 279.2 mGycm, Automated exposure control for dose reduction was used. DATE OF EXAM: 07/13/2024 11:37 AM COMPARISON: Chest radiograph 05/19/2024, CT abdomen and pelvis 05/19/2024 CLINICAL INDICATION:Female, 54 years old with history of J44.9 COPD; PHH, nodules TECHNIQUE: Multiple axial images were obtained through the chest before and after the uneventful admi nistration of 100 cc of Isovue-300 intravenously . Coronal and sagittal reformats reviewed. FINDINGS: LUNGS/ PLEURA: No pleural effusion, pneumothorax, focal consolidation. Mild paraseptal emphysematous changes. Few scattered pulmonary nodules with a peripheral left lower lobe 1.9 mm calcified granulom a (series 7, image 26). Peripheral right upper lobe 3.2 mm pulmonary nodule (series 7, image 14), lef t lower lobe 3.0 mm pulmonary nodule (series 7, image 23), peripheral right lower lobe 5 mm pulmonary nodule (series 7, image 35), and right lower lobe 2.8 mm pulmonary nodule (series 7, image 37). AIRWAY: Patent and unremarkable.. HEART: Size within normal limits. . No pericardial effusion. No significant coronary artery calcifica tions. MEDIASTINUM: No evidence of adenopathy. Calcified right hilar granulomas. Punctate calcified subcarin al granuloma. VASCULATURE: No aortic aneurysm. Minimal atherosclerotic calcification of the aorta and its branches . MUSCULOSKELETAL: No acute osseous abnormalities. Advanced degenerative disc disease with endplate seq uences, disc space narrowing, vacuum disc disease, and anterior osteophytosis at L2-L3. SOFT TISSUES/LYMPH NODES: Unremarkable. LOWER NECK: No significant findings. UPPER ABDOMEN: Multiple punctate calcified granulomas within the spleen. IMPRESSION: 1. Few pulmonary nodules measuring up to 5 mm. According to Fleischner criteria, in a low-risk patien t no follow up is recommended. In a high-risk patient consider optional CT chest in 12 months. 2. Mild emphysematous changes. 3. Sequelae of prior granulomatous disease. [facility], , 07/13/2024 11:54 AM
== END | disposition home or self-care (01) ==
LOC: RADCTMAIN 10:37
PROVIDERS: ATTEND Family Medicine
DX: J43.8 Other emphysema (principal); J44.9 Chronic obstructive pulmonary disease, unspecified; F17.210 Nicotine dependence, cigarettes, uncomplicated; R93.5 Abnormal findings on diagnostic imaging of other abdominal regions, including retroperitoneum; R91.8 Other nonspecific abnormal finding of lung field; J84.10 Pulmonary fibrosis, unspecified
CPT/HCPCS: 71270; Q9967

== ENCOUNTER → 2024-09-28 | Outpatient (CLI) | payer BC ==
--- NOTE | 2024-09-28 09:08 | MM ---
Reason for Exam: Screening (asymptomatic). Last mammogram was performed 20 year(s) and 6 month(s) ago. Patient History: Menarche at age 10. First Full-Term at age 17. Hysterectomy at age 29. Currently using Estrogen, starting at age 53. Risk Values: Hollie 5 year model risk: 0.9%. NCI Lifetime model risk: 5.9%. Prior Study Comparison: 01/16/1999 Bilateral Special View Mammogram, [facility]. 04/12/2004 Bilateral Screening Mammogram, [facility]. Tissue Density: The breasts are heterogeneously dense, which may obscure small masses. Findings: Analyzed By CAD. A few small, benign oil cyst calcifications are noted. Asymmetric densities show no persisting abnormality on 3-D images. No suspicious microcalcifications, discrete mass, or other abnormality is seen. Overall Assessment: Benign, BI-RAD 2 Management: Screening Mammogram of both breasts in 1 year. Patient should continue monthly self-breast exams. A clinical breast exam by your physician is recommended on an annual basis. This exam should not preclude additional follow-up of suspicious palpable abnormalities. Note on Hollie scores and lifetime risk: 1. A Hollie score greater than 3% is considered moderate risk. If this is the case, consider specialist referral to assess eligibility for a risk reducing agent. 2. If overall lifetime risk for the development of breast cancer is 20% or higher, the patient may qualify for future screening with alternating mammogram and breast MRI. [facility], , 09/28/2024 9:04 AM. Electronically signed and approved by: Alexis Trent M.D. Radiologist
--- NOTE | 2024-09-28 13:11 | BD ---
EXAMINATION TYPE: Axial Bone Density DATE OF EXAM: 09/28/2024 CLINICAL HISTORY: 54 years old Female. ICD-10 CODE: Z78.0 ASYMPTOMATIC MENOPAUSAL STA , Additional H istory: Height: 5 ft 4 1/2 in Weight: 125 FRAX RISK QUESTIONS: Alcohol (3 or more units per day): no Family History (Parent hip fracture): yes Glucocorticoids (More than 3mos): no (Ex: prednisone, prednisolone, methylprednisolone, dexamethasone, and hydrocortisone). History of Fracture in Adulthood: yes Secondary Osteoporosis: 1. Type 1 Diabetes: no 2. Hyperthyroidism: no 3. Menopause before 45: yes 4. Malnutrition: no 5. Chronic liver disease: no Rheumatoid Arthritis: no Current Tobacco Use: yes RISK FACTORS HISTORY OF: Surgery to Spine/Hip(right/left)/Wrist (right/left): none MEDICATIONS: Thyroid Medications: none Osteoporosis Medications: none EXAM MEASUREMENTS: Bone mineral densitometry was performed using the [employer] System. Bone mineral density as measured about the Lumbar spine is: ----- L1-L4(G/cm2): 1.317 T Score Values are as follows: ----- L1: -2.0 ----- L2: 3.0 ----- L3: 3.5 ----- L4: -0.2 ----- L1-L4: 1.1 Z Score Values are as follows: ----- L1: -0.8 ----- L2: 4.2 ----- L3: 4.7 ----- L4: 1.0 ----- L1-L4: 2.3 baseline Bone mineral density about the R hip (g/cm2): 0.831 Bone mineral density about the L hip (g/cm2): 0.843 T Score values are as follows: -----R Neck: -1.5 -----L Neck: -1.4 -----R Total: -0.8 -----L Total: -1.0 Z Score values are as follows: -----R Neck: -0.2 -----L Neck: -0.1 -----R Total: 0.2 -----L Total: -0.1 baseline FRAX%s: The graph provided illustrates a 21.5 % chance for a major osteoporotic fx and a 1.9 % chance for the hips probability for fx in 10 years time. IMPRESSION: Osteopenia (T Score between -2.5 and -1). There is slightly increased risk of fracture and the patient may be considered for treatment. Re-Screen 2-5 years. NOTE: T-SCORE=SD OF THE YOUNG ADULT MEAN. [facility], , 09/28/2024 1:08 PM
== END | disposition home or self-care (01) ==
LOC: RADMAMWWP 08:32
PROVIDERS: ATTEND Family Medicine
DX: Z12.31 Encounter for screening mammogram for malignant neoplasm of breast (principal); M85.89 Other specified disorders of bone density and structure, multiple sites; R92.333 Mammographic heterogeneous density, bilateral breasts; Z78.0 Asymptomatic menopausal state
CPT/HCPCS: 77063; 77067; 77080